=== PATIENT | female | born 1995 | race Hispanic/Latino ===

== ENCOUNTER 2023-07-13 12:35 | Emergency (ER) | payer SELFPAY ==
[2023-07-13] MEDS ORDERED: Acetaminophen 500 MG TAB ONE (16:51)
== END 2023-07-13 21:35 | disposition home or self-care (01) ==
LOC: ERS 12:35
DX: O02.81 Inappropriate change in quantitative human chorionic gonadotropin (hCG) in early pregnancy (principal); Z3A.01 Less than 8 weeks gestation of pregnancy; Z55.6 Problems related to health literacy
CPT/HCPCS: 36415; 76801; 84702